=== PATIENT | male | born 1965 | race Caucasian/White ===

== ENCOUNTER 2017-04-08 16:23 | Emergency (ER) | payer OTHER ==
[~2017-04-08] VITALS: Ht 170.2 cm; Wt 72.3 kg
[~2017-04-08 16:23] MED LIST: FLOMAX; MOTRIN; VICODIN
[2017-04-08 16:37] VITALS: Ht 170.2 cm; Wt 72.3 kg
--- NOTE | 2017-04-08 18:22 | ERD ---
ER Documentation Chief Complaint Chief Complaint R EYE FEEL SOMETHING INSIDE HPI 51-year-old male, previously healthy, presents to the emergency department complaining of acute onset of right eye pain that occurred 2 days ago after a foreign body went into his eye. Denies blurred vision, no eye discharge. His attempted to remove the foreign body with a Q-tip. No contact lenses ROS A 12-point review of systems was performed and negative other than presented in the history of present illness. SYSTEMIC symptoms: no fever, chills, no night sweats, no weight loss EYE symptoms: Per HPI OTOLARYNGEAL symptoms: No hearing loss. No ear pain, no sore throat CARDIOVASCULAR symptoms: No chest pain or discomfort, no palpitations. PULMONARY symptoms: No dyspnea, no cough, no wheezing. GASTROINTESTINAL symptoms: No abdominal pain, no nausea, no vomiting, no diarrhea MUSCULOSKELETAL symptoms: No arthralgias, no muscle aches. NEUROLOGY symptoms: No confusion, no syncope, no numbness or tingling. SKIN: No rashes Medications Home Meds Reported Medications [Motrin] No Conflict Check 04/29/09 [Flomax] No Conflict Check 04/29/09 [Vicodin] No Conflict Check 04/29/09 Allergies Allergies: Coded Allergies: No Known Allergies (Verified Allergy, Mild, 04/29/09) PMhx/Soc Medical and Surgical Hx: pt denies Medical Hx, pt denies Surgical Hx History of Surgery: No Anesthesia Reaction: No Hx Neurological Disorder: No Hx Respiratory Disorders: No Hx Cardiac Disorders: No Hx Psychiatric Problems: No Hx Miscellaneous Medical Probl: No Hx Alcohol Use: No Hx Substance Use: No Hx Tobacco Use: No Physical Exam Vitals Vital Signs Date Time Temp Pulse Resp B/P Pulse Ox O2 Delivery O2 Flow Rate FiO2 04/08/17 16:37 97.3 84 18 119/56 99 Physical Exam Patient is in no acute distress, vital signs stable. Alert and fully oriented. EYES: PERRLA, EOMI, 2 mm, white foreign body seen in the right cornea. ,EARS: Canals clear, tympanic membranes WNL THROAT: Normal oropharynx. NECK: Supple, No lymphadenopathy. Full ROM without pain or tenderness. HEART: RRR, no rubs, murmurs, clicks or gallops. LUNGS: Clear to auscultation. ABDOMEN: Soft, non-tender without masses or hepatosplenomegaly. EXTREMITIES: No edema bilaterally. BACK: Full ROM, no deformity, normal back exam NEURO: Cranial nerves grossly intact, no motor or sensory deficit Procedures/MDM 51-year-old male, previously healthy, presents with a right eye foreign body for 2 days. Vital signs stable, Physical exam unremarkable except for a 2 mm white foreign body seen on the right cornea. Low suspicion for iritis, episcleritis, penetrating foreign body. Procedure: Corneal foreign body removal Location: Right eye. Anesthesia: Tetracaine Procedure: Foreign body carefully removed with a Q-tip followed by normal saline irrigation. No evidence of corneal abrasion or ulcer. Patient tolerated well the procedure without complications. Physical examination and clinical presentation consistent most likely with right corneal foreign body During the ED course the patient remained stable, no new complaints. Results and clinical impression discussed with patient who agrees with management. The patient was instructed to follow up with the primary care provider in the next 48h. If symptoms persist, worsen or new symptoms develop, then patient should return to the ED immediately. Instructions explained and given directly by me to the patient in [place] with acknowledgment and demonstrated understanding. Disclaimer: Inadvertent spelling and grammatical errors are likely due to EHR/ dictation software use and do not reflect on the overall quality of patient care. Also, please note that the electronic time recorded on this note does not necessarily reflect the actual time of the patient encounter. Departure Diagnosis: Primary Impression: Foreign body of right eye Additional Impression: Pain in eye Condition: Stable Additional Instructions: Muchas ernie por [facility] para adames servicio. Esperamos que en adames visita a la vilma de emergencia adames problema medico haya sido solucionado y que se sienta mucho mejor. Para estar seguros que adames mejoria sigue en proceso, le pedimos el favor de hacer trevor ignacio de seguimiento medico con adames doctor primario en los proximos 2-4 [place]. Lleve con usted estos documentos y las medicinas recetadas. Si asif sintomas empeoran y no puede [place] a adames doctor, por favor regrese a vilma de emergencia. En lima que usted no tenga un mdico de atencin primaria: Llame al mdico o clnica comunitaria de referencia que aparece abajo coral las horas de consultorio para hacer trevor ignacio para que le vean. CLINICAS: [facility] [phone] [facility] [phone] [facility] [place] [phone] [place] [id number] [phone] [place] [phone] [facility]IN [facility]. [phone] JEFE SANTACRUZ MD Apr 08, 2017 18:22
[2017-04-08 18:31] VITALS: BP 112/58; PULSE 82; RESP 18; TEMP 98.2
== END 2017-04-08 18:31 | disposition home or self-care (01) ==
LOC: FTE 16:23
DX: T15.01XA Foreign body in cornea, right eye, initial encounter (principal); X58.XXXA Exposure to other specified factors, initial encounter; Y92.9 Unspecified place or not applicable
CPT/HCPCS: 65220; Z7502